=== PATIENT | female | born 1995 | race Caucasian/White ===

== ENCOUNTER → 2021-06-07 | Outpatient (CLI) | payer OTHER ==
[2021-06-07 12:40] LABS: Alanine Aminotransfer (ALT/SGP 37 U/L (12-78); Albumin, Blood 4.2 g/dL (3.4-5.0); Albumin/Globulin Ratio 1.2 (0.8-1.8); Alk Phos 74 U/L (50-136); Anion Gap 5 mmol/L (6-16); Aspartate Aminotrans (AST/SGOT 14 U/L (12-37); Bilirubin, Total 0.2 mg/dL (0.1-1.0); Blood Urea Nitrogen 14 mg/dL (8-24); Bun/Creatinine Ratio 19.6 (12.0-20.0); CHOL/HDL RATIO 3.3; CO2, Blood 27 mmol/L (21-32); Calcium, Blood 9.2 mg/dL (8.5-10.1); Chloride, Blood 107 mmol/L (98-108); Cholesterol 140 mg/dL (50-200); Creatinine, Blood 0.72 mg/dL (0.40-1.00); Globulin, Blood 3.6 g/dL (2.2-4.0); Glomerular Filtration Rate >60 (60-); Glucose, Blood 115 mg/dL (70-99); HDL Cholesterol 43 mg/dL (>39); LDL/HDL RATIO 1.8; Low Density Lipoprotein Chol 79 mg/dL (0-110); Potassium, Blood 4.1 mmol/L (3.5-5.5); Sodium, Blood 139 mmol/L (136-145); Total Protein, Blood 7.8 g/dL (6.4-8.2); Triglycerides 90 mg/dL (30-140); Very Low Density Lipoprot Chol 18 mg/dL (6-28)
== END ==
LOC: LAB SHORT 09:21 → LAB 09:21
PROVIDERS: Family Medicine
DX: Z13.1 Encounter for screening for diabetes mellitus (principal); N91.5 Oligomenorrhea, unspecified; Z13.220 Encounter for screening for lipoid disorders
CPT/HCPCS: 36415; 80053; 80061; 83001; 84146; 84443; 84703

== ENCOUNTER 2022-10-23 01:20 | Emergency (ER) | payer OTHER ==
[~2022-10-23] VITALS: Ht 162.6 cm; Wt 83.9 kg
[2022-10-23 02:20] LABS: BASOPHILS ABSOLUTE AUTO 0.04 K/mm3 (0.00-0.23); BASOPHILS PERCENT AUTO 0 % (0-2); EOSINOPHILS ABSOLUTE AUTO 0.31 K/mm3 (0.00-0.68); EOSINOPHILS PERCENT AUTO 3 % (0-6); Hematocrit 38.6 % (33.0-51.0); Hemoglobin 12.3 g/dL (11.5-16.0); IMMATURE GRAN ABSOLUTE AUTO 0.08 K/mm3 (0.00-0.10); IMMATURE GRAN PERCENT AUTO 1 % (0-1); LYMPHOCYTES ABSOLUTE AUTO 2.32 K/mm3 (0.84-5.20); LYMPHOCYTES PERCENT AUTO 23 % (21-46); MONOCYTES ABSOLUTE AUTO 0.42 K/mm3 (0.16-1.47); MONOCYTES PERCENT AUTO 4 % (4-13); Mean Corpuscular HGB 23.3 pg (26.0-34.0); Mean Corpuscular HGB Conc 31.9 g/dL (31.5-36.5); Mean Corpuscular Volume 73 fL (80-100); Mean Platelet Volume 11.4 fL (9.1-12.4); NEUTROPHILS ABSOLUTE AUTO 6.86 K/mm3 (1.96-9.15); NEUTROPHILS PERCENT AUTO 68 % (41-73); Platelet Count 291 K/mm3 (150-400); RDW Coefficient Variation 14.7 % (11.7-14.2); RDW Standard Deviation 38.6 fL (35.1-46.3); Red Blood Cell Count 5.27 M/mm3 (3.80-5.20); White Blood Cell Count 10.03 K/mm3 (4.00-11.30)
[2022-10-23 02:34] LABS: Albumin, Blood 3.8 g/dL (3.4-5.0); Albumin/Globulin Ratio 1.1 (0.8-1.8); Bilirubin, Total 0.3 mg/dL (0.1-1.0); Calcium, Blood 9.3 mg/dL (8.5-10.1); Creatinine, Blood 0.71 mg/dL (0.40-1.00); Globulin, Blood 3.6 g/dL (2.2-4.0); Potassium, Blood 3.2 mmol/L (3.5-5.5); Total Protein, Blood 7.4 g/dL (6.4-8.2)
[2022-10-23 04:49] LABS: Source, Urine Clean Catch
[2022-10-23 05:04] LABS: Bilirubin, Urine Neg (Neg); Blood, Urine 3+ (Neg); Glucose Qualitative, Urine Neg (Neg); Ketones, Urine Neg (Neg); Leukocyte Esterase, Urine Neg (Neg); Nitrite, Urine Neg (Neg); Protein, Urine 1+ (Neg); Urobilinogen, Urine NORM (Normal)
[2022-10-23 05:18] LABS: Appearance, Urine Hazy (Clear); Color, Urine Yellow (P-Yellow)
[2022-10-23 05:19] LABS: White Blood Cells, Urine 0-2 /hpf (0-5)
[2022-10-23 05:20] LABS: Bacteria Few /hpf; Calcium Oxalate Crystals Few /hpf; Mucus Light (0-Heavy); Squamous Epithelial Cells Few /hpf (Few)
[2022-10-23] MEDS ORDERED: HYDR1TAB94 PO (09:08)
[2022-10-23] MEDS ORDERED: IBUP600 PO (09:08)
[2022-10-23] MEDS ORDERED: TAMS.4ER PO (09:08)
[2022-10-23] MEDS ORDERED: ONDA4ODT MM (09:08)
[2022-10-23 10:00] VITALS: BP 124/79
== END 2022-10-23 10:07 | disposition home or self-care (01) ==
LOC: ER 01:20
PROVIDERS: Emergency Medicine
DX: N13.2 Hydronephrosis with renal and ureteral calculous obstruction (principal)
CPT/HCPCS: 74177; 76856; 80053; 81001; 81025; 83690; 85025; 96374-59; 96375; 96376; 99284-25; J1170; J1885; J2270; J2405; J3010; J7030; Q9967

== ENCOUNTER 2024-03-30 06:42 | Inpatient (IN) | payer OTHER ==
[2024-03-30] VITALS (36 sets, daily range): BP systolic 114–203; BP diastolic 57–120
[~2024-03-30] VITALS: Ht 162.6 cm; Wt 91.2 kg
[~2024-03-30 06:42] MED LIST: HYDR1TAB94 PO; IBUP600 PO; ONDA4ODT MM; TAMS.4ER PO
[2024-03-30] MEDS ORDERED: Oxytocin 10 Unit / ML Vial IM PRN (06:55)
[2024-03-30] MEDS ORDERED: OXYTOCIN/RINGER'S LACTATE 500 ML IV PRN (06:55)
[2024-03-30] MEDS ORDERED: Lactated Ringer's 1,000 ML IV PRN (06:55)
[2024-03-30] MEDS ORDERED: Tranexamic Acid 100 ML IV SCH (06:55)
[2024-03-30] MEDS ORDERED: Misoprostol 200 MCG Tab PR PRN ×2 (06:55→17:20)
[2024-03-30] MEDS ORDERED: Acetaminophen 500 MG Tab PO PRN (06:55)
[2024-03-30] MEDS ORDERED: Ondansetron HCl 2 MG / ML 2ML Vial IV PRN (06:55)
[2024-03-30] MEDS ORDERED: Methylergonovine Maleate 0.2MG / ML 1ML Amp IM PRN ×2 (06:55→17:25)
[2024-03-30] MEDS ORDERED: Carboprost Tromethamine 250 MCG/ML 1ML Amp IM PRN (06:55)
[2024-03-30] MEDS ORDERED: Misoprostol 200 MCG Tab BC PRN (06:55)
[2024-03-30] MEDS ORDERED: Lactated Ringer's 1,000 ML IV SCH ×4 (07:00→17:25)
[2024-03-30] MEDS ORDERED: Calcium Carbonate 500 MG Tab Chew PO PRN (07:00)
[2024-03-30] MEDS ORDERED: OXYTOCIN/RINGER'S LACTATE 500 ML IV SCH ×2 (07:00→17:20)
[2024-03-30 07:17] LABS: BASOPHILS ABSOLUTE AUTO 0.05 K/mm3 (0.00-0.23); BASOPHILS PERCENT AUTO 1 % (0-2); EOSINOPHILS ABSOLUTE AUTO 0.31 K/mm3 (0.00-0.68); EOSINOPHILS PERCENT AUTO 3 % (0-6); Hematocrit 33.7 % (33.0-51.0); Hemoglobin 11.1 g/dL (11.5-16.0); IMMATURE GRAN ABSOLUTE AUTO 0.03 K/mm3 (0.00-0.10); IMMATURE GRAN PERCENT AUTO 0 % (0-1); LYMPHOCYTES ABSOLUTE AUTO 1.97 K/mm3 (0.84-5.20); LYMPHOCYTES PERCENT AUTO 21 % (21-46); MONOCYTES ABSOLUTE AUTO 0.56 K/mm3 (0.16-1.47); MONOCYTES PERCENT AUTO 6 % (4-13); Mean Corpuscular HGB 23.7 pg (26.0-34.0); Mean Corpuscular HGB Conc 32.9 g/dL (31.5-36.5); Mean Corpuscular Volume 72 fL (80-100); Mean Platelet Volume 12.4 fL (9.1-12.4); NEUTROPHILS ABSOLUTE AUTO 6.45 K/mm3 (1.96-9.15); NEUTROPHILS PERCENT AUTO 69 % (41-73); Platelet Count 160 K/mm3 (150-400); RDW Coefficient Variation 14.6 % (11.7-14.2); RDW Standard Deviation 37.1 fL (35.1-46.3); Red Blood Cell Count 4.68 M/mm3 (3.80-5.20); White Blood Cell Count 9.37 K/mm3 (4.00-11.30)
[2024-03-30] MEDS ORDERED: PRENATAL TABLE1 EAC2 PO (07:55)
[2024-03-30] MEDS ORDERED: FentaNYL 2mcg/ml-Bup 0.1% Epd 250 ML EPI PRN (10:55)
[2024-03-30] MEDS ORDERED: ePHEDrine Sulfate 50 MG/ML 1ML Injection XX PRN (10:55)
[2024-03-30] MEDS ORDERED: FentaNYL Citrate 50 MCG/ML 2 ML Injection IV PRN (11:40)
[2024-03-30] MEDS ORDERED: Acetaminophen 325 MG TABLET PO PRN (17:25)
[2024-03-30] MEDS ORDERED: Benzocaine Topical Anesthetic Spray 60GM TOP PRN (17:25)
[2024-03-30] MEDS ORDERED: FLU VACC TS2024-25(6MOS UP)/PF 45 MCG/0.5 ML SYRINGE IM SCH (17:25)
[2024-03-30] MEDS ORDERED: Witch Hazel/Glycerin PADS TOP PRN (17:30)
[2024-03-30] MEDS ORDERED: Ibuprofen 400 MG Tab PO PRN (17:30)
[2024-03-30] MEDS ORDERED: Ketorolac Tromethamine 30mg Vial IV SCH (18:00)
[2024-03-30] MEDS ORDERED: Ketorolac Tromethamine 30mg Vial IV PRN (20:10)
[2024-03-31] VITALS (8 sets, daily range): BP systolic 121–153; BP diastolic 61–85
[2024-03-31] MEDS ORDERED: Rho(D) Immune Globulin 300 MCG / SYR IV ONE ×2 (00:35→23:55)
[2024-03-31 05:48] LABS: BASOPHILS ABSOLUTE AUTO 0.04 K/mm3 (0.00-0.23); BASOPHILS PERCENT AUTO 0 % (0-2); EOSINOPHILS ABSOLUTE AUTO 0.32 K/mm3 (0.00-0.68); EOSINOPHILS PERCENT AUTO 3 % (0-6); Hemoglobin 10.2 g/dL (11.5-16.0); IMMATURE GRAN ABSOLUTE AUTO 0.04 K/mm3 (0.00-0.10); IMMATURE GRAN PERCENT AUTO 0 % (0-1); LYMPHOCYTES ABSOLUTE AUTO 2.38 K/mm3 (0.84-5.20); LYMPHOCYTES PERCENT AUTO 22 % (21-46); MONOCYTES ABSOLUTE AUTO 0.65 K/mm3 (0.16-1.47); MONOCYTES PERCENT AUTO 6 % (4-13); Mean Corpuscular HGB 24.1 pg (26.0-34.0); Mean Corpuscular HGB Conc 32.9 g/dL (31.5-36.5); Mean Corpuscular Volume 73 fL (80-100); Mean Platelet Volume 12.6 fL (9.1-12.4); NEUTROPHILS ABSOLUTE AUTO 7.27 K/mm3 (1.96-9.15); NEUTROPHILS PERCENT AUTO 68 % (41-73); Platelet Count 148 K/mm3 (150-400); RDW Coefficient Variation 14.7 % (11.7-14.2); Red Blood Cell Count 4.23 M/mm3 (3.80-5.20)
[2024-03-31] MEDS ORDERED: Docusate Sodium 100 MG Cap PO PRN (08:40)
[2024-03-31] MEDS ORDERED: Prenatal Vit/FE Fumarate/FA 1 Tab PO SCH (09:00)
[2024-03-31] MEDS ORDERED: Lanolin Cream TOP SCH (15:10)
== END 2024-03-31 21:14 | disposition home or self-care (01) | DRG 807 ==
LOC: OBS 06:42 → BC 06:44 → OBS 06:52 → BC 06:53
PROVIDERS: ADMIT Obstetrics & Gynecology
PROC: 10E0XZZ Delivery of Products of Conception, External Approach (ICD-10-PCS; principal; 2024-03-30)
DX: O48.0 Post-term pregnancy (principal); Z37.0 Single live birth; Z3A.41 41 weeks gestation of pregnancy; Z98.890 Other specified postprocedural states; Z87.891 Personal history of nicotine dependence; O69.81X0 Labor and delivery complicated by cord around neck, without compression, not applicable or unspecified
CPT/HCPCS: 36415; 51702; 85025; 85460; 86850; 86900; 86901; A9270; J1885; J2590; J2791; J3010; J7120

== ENCOUNTER 2024-08-07 22:29 | Emergency (ER) | payer OTHER ==
[~2024-08-07] VITALS: Ht 162.6 cm; Wt 86.2 kg
[~2024-08-07 22:29] MED LIST changes: +PRENATAL TABLE1 EAC2 PO
[2024-08-07 22:51] LABS: Source, Urine Clean Catch
[2024-08-07 23:00] LABS: Glucose Qualitative, Urine Neg (Neg); Ketones, Urine Neg (Neg); Leukocyte Esterase, Urine 2+ (Neg); Protein, Urine 1+ (Neg); Specific Gravity, Urine 1.015 (1.003-1.022); Urobilinogen, Urine 2+ (Normal)
[2024-08-07 23:03] LABS: BASOPHILS ABSOLUTE AUTO 0.07 K/mm3 (0.00-0.23); BASOPHILS PERCENT AUTO 1 % (0-2); EOSINOPHILS ABSOLUTE AUTO 0.73 K/mm3 (0.00-0.68); EOSINOPHILS PERCENT AUTO 6 % (0-6); Hematocrit 37.0 % (33.0-51.0); Hemoglobin 11.7 g/dL (11.5-16.0); IMMATURE GRAN ABSOLUTE AUTO 0.03 K/mm3 (0.00-0.10); IMMATURE GRAN PERCENT AUTO 0 % (0-1); LYMPHOCYTES ABSOLUTE AUTO 2.82 K/mm3 (0.84-5.20); LYMPHOCYTES PERCENT AUTO 24 % (21-46); MONOCYTES ABSOLUTE AUTO 0.61 K/mm3 (0.16-1.47); MONOCYTES PERCENT AUTO 5 % (4-13); Mean Corpuscular HGB Conc 31.6 g/dL (31.5-36.5); Mean Corpuscular Volume 78 fL (80-100); NEUTROPHILS ABSOLUTE AUTO 7.73 K/mm3 (1.96-9.15); NEUTROPHILS PERCENT AUTO 64 % (41-73); NRBC ABSOLUTE 0.00 K/mm3 (0.00-0.02); NRBC Auto 0.0 /100 WBC (0.0-0.2); Platelet Count 256 K/mm3 (150-400); RDW Coefficient Variation 13.1 % (11.7-14.2); RDW Standard Deviation 37.3 fL (35.1-46.3)
[2024-08-07 23:04] LABS: Bilirubin, Urine 2+ (Neg); Color, Urine Orange (P-Yellow)
[2024-08-07] MEDS ORDERED: Ondansetron HCl 2 MG / ML 2ML Vial IV ONE (23:05)
[2024-08-07] MEDS ORDERED: Morphine Sulfate 4 MG/1 ML Injection IV ONE (23:05)
[2024-08-07 23:10] LABS: Red Blood Cells, Urine TNTC /hpf (0-2)
[2024-08-07 23:22] LABS: Alanine Aminotransfer (ALT/SGP 37.0 U/L (12-78); Albumin, Blood 4.0 g/dL (3.4-5.0); Albumin/Globulin Ratio 1.1 (0.8-1.8); Anion Gap 9.0 mmol/L (3-11); Aspartate Aminotrans (AST/SGOT 19.0 U/L (12-37); Bilirubin, Total 0.2 mg/dL (0.1-1.0); Blood Urea Nitrogen 11.0 mg/dL (8-24); CO2, Blood 22.0 mmol/L (21-32); Calcium, Blood 8.5 mg/dL (8.5-10.1); Chloride, Blood 112.0 mmol/L (98-108); Creatinine, Blood 0.86 mg/dL (0.40-1.00); Globulin, Blood 3.5 g/dL (2.2-4.0); Glucose, Blood 139.0 mg/dL (70-99); Potassium, Blood 3.8 mmol/L (3.5-5.5); Sodium, Blood 139.0 mmol/L (136-145); Total Protein, Blood 7.5 g/dL (6.4-8.2)
[2024-08-07] MEDS ORDERED: Ketorolac Tromethamine 15mg Vial IV ONE (23:50)
[2024-08-08 00:13] VITALS: BP 114/65
== END 2024-08-08 02:09 | disposition home or self-care (01) ==
LOC: ER 22:29
PROVIDERS: Emergency Medicine
DX: N13.2 Hydronephrosis with renal and ureteral calculous obstruction (principal); Z87.442 Personal history of urinary calculi
CPT/HCPCS: 74177; 80053; 81001; 81025; 83690; 85025; 87086; 96374-59; 96375; 99284-25; J1885; J2270; J2405; Q9967